=== PATIENT | male | born 1960 | race African-American/Black ===

== ENCOUNTER 2017-08-02 16:00 | Emergency (ER) | payer MEDICAID ==
[~2017-08-02] VITALS: Ht 175.3 cm; Wt 70.3 kg
[2017-08-02 16:04] VITALS: BP 158/92
[2017-08-02] MEDS ORDERED: Ketorolac 30mg Inj IM ONE (16:15)
[2017-08-02] MEDS ORDERED: Morphine Sulfate 4mg/ml Inj IM ONE (16:15)
[2017-08-02] MEDS ORDERED: NORCO 5-325 TA1 EACH ORAL (16:41)
[2017-08-02 16:45] VITALS: BP 136/83
--- NOTE | 2017-08-02 17:03 | Emergency Room Report ---
History of Present Illness General Chief Complaint: Abdominal Pain Source: EMS Present Illness HPI 57-year-old male presents ED for evaluation. Patient brought in by EMS for lower abdominal pain. Started today. History of hernia. Patient states pain is sharp, 7/10, nonradiating. States he is able to reduce the hernia on his own. Denies nausea or vomiting. No fevers or chills. States that he is currently scheduled with [facility] [place] to have surgery soon. Did not know the date. No other aggravating or relieving factors. Denies any other associated symptoms Allergies: Coded Allergies: TRAMADOL (Verified Allergy, Unknown, 08/02/17) Patient History Past Medical History: none Past Surgical History: none Pertinent Family History: none Social History: Denies: smoking, alcohol use, drug use Immunizations: UTD Reviewed Nursing Documentation: PMH: Agreed, PSxH: Agreed Nursing Documentation-PMH Hx Cardiac Problems: Yes Review of Systems All Other Systems: negative except mentioned in HPI Physical Exam Vital Signs Date Time Temp Pulse Resp B/P (MAP) Pulse Ox O2 Delivery O2 Flow Rate FiO2 08/02/17 15:54 98.0 89 16 161/96 98 Room Air 98.1 Sp02 EP Interpretation: reviewed, normal General Appearance: no apparent distress, alert, GCS 15, non-toxic Head: normocephalic Eyes: bilateral eye normal inspection, bilateral eye PERRL ENT: normal ENT inspection Neck: normal inspection Respiratory: chest non-tender, lungs clear, normal breath sounds, speaking full sentences Cardiovascular #1: regular rate, rhythm, no edema Gastrointestinal: normal bowel sounds, non tender, soft, non-distended, no guarding, no rebound Rectal: deferred Genitourinary: other - R inguinal hernia. reducible Musculoskeletal: normal inspection Neurologic: alert, oriented x3, responsive, motor strength/tone normal, sensory intact, speech normal Psychiatric: normal inspection Skin: normal inspection Lymphatic: normal inspection Medical Decision Making Diagnostic Impression: Primary Impression: Hernia ER Course Hospital Course 57-year-old M presents to ED with abdominal pain Differential diagnosis includes-appendicitis, cholecystitis, small bowel obstruction, gastritis, Clinical course Patient placed on stretcher. After initial history, physical exam reveals a male in no acute distress. On exam there is a reducible hernia to the right inguinal region. No fluctuance. No induration. Abdomen otherwise soft. Normal bowel sounds. Patient. No distress per Clinically appears like a reducible hernia. Consistent with patient's history. Patient is scheduled to have surgery soon [place] [facility]. I see no reason for workup at this time. No emergent indication for surgery at this time. Given morphine here for pain. Upon reassessment, patient states pain has improved. Given improvement in symptoms and lack of acute findings, I believe patient can be safely discharged to home. Patient agrees with plan I feel this is a highly complex case requiring extensive working including EKG/ Rhythm strip, Xray/CT/US, Blood/urine lab work, repeat exams while in ED, and administration of strong opiates/narcotics for pain control, admission to hospital or close patient follow up. Diagnosis - hernia Stable and discharged to home with Rx [place]. Followup with surgery regarding scheduled date for OR. Return to ED if symptoms recur or worsen Last Vital Signs Date Time Temp Pulse Resp B/P (MAP) Pulse Ox O2 Delivery O2 Flow Rate FiO2 08/02/17 16:45 97.8 08/02/17 16:45 81 15 136/83 98 Room Air Status: improved Disposition: HOME, SELF-CARE Condition: Stable Scripts Hydrocodone Bit/Acetaminophen 5-325* (NORCO 5-325*) 1 Each Tablet 1 TAB ORAL Q6H Y for For Pain, #10 TAB 0 Refills Prov: RAFIQ HERNANDEZ M.D. 08/02/17 Patient Instructions: Inguinal Hernia, Adult, [id number] RAFIQ HERNANDEZ M.D. Aug 02, 2017 17:03
== END 2017-08-02 16:45 | disposition home or self-care (01) ==
LOC: EDBD 16:00 → EMR 16:23
DX: K40.90 Unilateral inguinal hernia, without obstruction or gangrene, not specified as recurrent (principal)
CPT/HCPCS: 96372; 99284; J1885; J2270